=== PATIENT | female | born 1945 | race Caucasian/White ===

== ENCOUNTER 2019-11-05 08:00 | Outpatient (RCR) | payer MEDICARE, OTHER, SELFPAY | END 2019-11-10 10:44 | disposition home or self-care (01) | LOC: PT.CARL 08:00 | PROVIDERS: Visit Provider Orthopaedic Surgery Adult Reconstructive Orthopaedic Surgery | DX: M25.571 Pain in right ankle and joints of right foot (principal) | CPT/HCPCS: 97010; 97110; 97112; 97116; 97140; 97163 ==

== ENCOUNTER 2020-11-01 09:22 | Emergency (ER) | payer MEDICARE, OTHER, SELFPAY ==
[2020-11-01 09:24] VITALS: BP 174/104; PULSE 86; RESP 18; TEMP 36.8; O2SAT 99; BMI 28.3
--- NOTE | 2020-11-01 09:44 | XR_ITS ---
PROCEDURE: XR HIP LT 2-3V W/PELVIS CLINICAL INDICATION: pain injury COMPARISON: No exams were available for comparison FINDINGS: No fracture or dislocation. No lytic or blastic change. 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 IMPRESSION: No acute findings. Dictated by: Brett Zambrano MD 11/01/2020 10:31 Brett Zambrano MD in [place] 11/01/2020 10:31
--- NOTE | 2020-11-01 09:44 | CT_ITS ---
PROCEDURE: CT LUMBAR SPINE WO CON CLINICAL HISTORY: pain with radiculopathy COMPARISON: No exams were available for comparison TECHNIQUE: Axial images obtained with sagittal and coronal reformats. All CT scans at the facility use one or more dose reduction, viz: automated exposure control, ma/kV adjustment per patient size (including targeted exams where dose is matched to indication, i.e. head), or iterative reconstruction technique. FINDINGS: There is diffuse osteopenia and a mild lumbar scoliosis convex left. No acute fracture or dislocation. Degenerative changes are present in the SI joints. There is colonic diverticulosis but no evidence of diverticulitis. T11-T12: Degenerative disc disease. Mild facet hypertrophic change. T12-L1: Degenerative disc disease with bulging disc and facet hypertrophic change. Vacuum disc and endplate sclerosis noted. L1-L2: Degenerative disc disease with mild concentric bulging disc L2-L3: Degenerative disc disease with mild concentric bulging disc L3-L4: 6 mm anterolisthesis of L3 with degenerative disc disease bulging disc and facet and ligamentum hypertrophic change with canal stenosis, bilateral lateral recess narrowing, and bilateral foraminal narrowing. Lateral recess and foraminal narrowing is greater on the right secondary to facet and ligamentum hypertrophy. L4-5: Degenerative disc disease with bulging disc with bilateral lateral recess and foraminal narrowing. L5-S1: Degenerative disc disease with bulging disc with left-sided foraminal narrowing. IMPRESSION: Multilevel lower thoracic and lumbar spondylosis with degenerative disc disease, bulging discs, facet ligamentum hypertrophy with lateral recess and foraminal narrowing and canal stenosis. Please see above for detailed description at each level. No acute fracture Dictated by: Brett Zambrano MD 11/01/2020 10:38 Brett Zambrano MD in [facility] 11/01/2020 10:38
[2020-11-01 09:45] VITALS: BP 164/92; PULSE 84; O2SAT 98
--- NOTE | 2020-11-01 09:46 | HMH.EDBACK ---
ED Disposition Clinical Impression: Lumbar radiculopathy Disposition: Home, Self-Care Condition on Discharge: Good Instructions: DI for Low Back Pain Prescriptions: Hydrocod/Acet 5/325 mg [[place] 5/325mg tablet] 1 tab PO Q4HP PRN 1 Days #12 tab PRN Reason: Moderate To Severe Pain Transmission Status: Received by [facility] methocarbamoL [Methocarbamol] 1,500 mg PO Q8H PRN #30 tab PRN Reason: Muscle Pain Transmission Status: Received by [facility] Referrals: Cornelius Orta [Primary Care Provider] - - Critical Care Critical Care Time: No Attestation: On 11/01/20, the high probability of a clinically significant, sudden or life threatening deterioration of the following system(s) required my full and direct attention, intervention and personal management. The time I documented below is in addition to time spent performing reported procedures but includes the following listed in this critical care notation. Medical Decision Making - Medical Records Medical records reviewed: Yes: I reviewed the patient's medical records. - Edgar Inquiry Pt receiving controlled substance: Yes Edgar was queried for this patient: Yes Risks and benefits of using a controlled substance: were discussed with pt by me Vital Signs: 11/01/20 09:24 11/01/20 09:45 11/01/20 11:18 Temperature 98.2 F 98.3 F Temperature Source Oral Oral Pulse Rate 84 98 H Pulse Rate [Left] 86 Respiratory Rate 18 18 Blood Pressure 164/92 H 179/100 H Blood Pressure [Right Arm] 174/104 H Blood Pressure Mean [Right Arm] 127 Blood Pressure Source Automatic Cuff Blood Pressure Source [Right Arm] Automatic Cuff Blood Pressure Position Sitting Blood Pressure Position [Right Arm] Sitting 02 Sat by Pulse Oximetry 99 98 Oxygen Delivery Method Room Air Room Air - Lab Data Lab Results 11/01/20 10:50: Urine Color Yellow, Urine Appearance Clear, Urine pH 7.0, Ur Specific [place] 1.015, Urine Protein Negative, Urine Glucose (UA) Negative, Urine Ketones Negative, Urine Blood Negative, Urine Nitrate Negative, Urine Bilirubin Negative, Urine Urobilinogen 0.2, Ur Leukocyte Esterase 1+ A, Urine WBC 3-5, Ur Squamous Epith Cells 5-10, Urine Bacteria 1+ Orders (Tests/Meds): ED MEDICATIONS Discontinued Medications Generic Name Dose Route Start Last Admin Trade Name Freq PRN Reason Stop Dose Admin Hydrocodone Bitart/Acetaminophen 1 tab 11/01/20 09:44 11/01/20 09:52 Hydrocodone/Apap 5/325 Mg Tablet PO 11/01/20 09:45 1 tab ONCE ONE Administration Dexamethasone 10 mg 11/01/20 09:44 11/01/20 09:51 Dexamethasone 4mg Tablet PO 11/01/20 09:45 10 mg ONCE ONE Administration Methocarbamol 1,000 mg 11/01/20 09:45 11/01/20 09:53 Methocarbamol 500mg Tablet PO 12/01/20 09:44 1,000 mg BID ASHISH Administration ORDERS Category Date Time Status Urine Culture Stat Micro 11/01/20 10:50 Received Medical Decision Narrative: Physical exam consistent with left-sided radicular pain secondary to low back strain. Given age and difficulty ambulating secondary to pain will obtain a CT and the an x-ray of the hip to evaluate for compression fracture versus hip fracture. Will treat patient symptoms. xr negative for hip fx. ct with multilevel degen changes. pt reports improved pain on reassessment, able to ambulate. will dc with f/u with PT and pcp for spine sx referall and give rx for pain meds. no s/s of cauda equina. return indications reviewed. Back Pain HPI - General Chief Complaint: Back Pain/Injury Stated Complaint: weakness, pain in lt leg Time Seen by Provider: 11/01/20 09:45 Mode of Arrival: Wheelchair Limitations: Physical Limitations Description of Symptoms (Recalled from ER Triage Doc. by RN): patient bent down to pick pulling machine tender a 15 pound bag sunday morning and experienced extreme back pain when standing back up. patient states that it wraps around left lower back and radiates down left leg.
--- NOTE | 2020-11-01 10:04 | PC.NURSE ---
patient to CT/Xray
[2020-11-01 10:57] LABS: Microscopic, Urine URINE MICROSCOPIC (MICROSCOPIC)
--- NOTE | 2020-11-01 11:02 | PC.NURSE ---
Dr noland to return call
--- NOTE | 2020-11-01 11:04 | PC.NURSE ---
Dr Cassidy returned call.
[2020-11-01 11:18] VITALS: BP 179/100; PULSE 98; RESP 18; TEMP 36.8; O2SAT 99
[2020-11-01 11:33] LABS: Appearance,Urine CLEAR (Clear); Bilirubin,Urine Negative (Negative); Blood, Urine Negative (Negative); Color,Urine YELLOW (Yellow); Glucose,Urine (UA) Negative (Negative); Ketones,Urine Negative (Negative); Leukocyte Esterase,Urine 1+ (Negative); Nitrate,Urine Negative (Negative); Protein,Urine Negative (Negative); Specific Gravity, Urine 1.015 (1.005-1.030); Urobilinogen,Urine 0.2 EU/dl (0.2)
[2020-11-01 12:15] LABS: Bacteria,Urine 1+ /lpf
== END 2020-11-01 11:19 | disposition home or self-care (01) ==
PROVIDERS: Emergency Provider Emergency Medicine; PCP Family Medicine
DX: M54.16 Radiculopathy, lumbar region (principal); X50.0XXA Overexertion from strenuous movement or load, initial encounter; Y92.019 Unspecified place in single-family (private) house as the place of occurrence of the external cause; M54.9 Dorsalgia, unspecified
CPT/HCPCS: 72131; 73502; 81001; 87086; 99281; 99282

== ENCOUNTER 2020-12-01 13:00 | Outpatient (RCR) | payer MEDICARE, OTHER, SELFPAY | END 2020-12-27 11:28 | disposition home or self-care (01) | LOC: PT.CARL 13:00 | PROVIDERS: PCP Family Medicine; Visit Provider Family Medicine | DX: M54.42 Lumbago with sciatica, left side (principal); M51.36 Other intervertebral disc degeneration, lumbar region | CPT/HCPCS: 97010; 97012; 97014; 97110; 97140; 97163; G0283 ==

== ENCOUNTER 2022-05-28 01:23 | Emergency (ER) | payer MEDICARE, OTHER, SELFPAY ==
[2022-05-28 01:25] VITALS: BP 162/95; PULSE 105; RESP 17; TEMP 36.6; O2SAT 96; BMI 34.2
--- NOTE | 2022-05-28 01:33 | CT_ITS ---
PROCEDURE INFORMATION: Exam: CT Head Without Contrast Exam date and time: 05/28/2022 1:41 AM Age: 76 years old Clinical indication: Stroke-like symptoms; Altered mental status/memory loss; Additional info: Head injury TECHNIQUE: Imaging protocol: Computed tomography of the head without contrast. Radiation optimization: All CT scans at this facility use at least one of these dose optimization techniques: automated exposure control; mA and/or kV adjustment per patient size (includes targeted exams where dose is matched to clinical indication); or iterative reconstruction. Other protocol: This patient has received 2 known CTs and 0 known cardiac nuclear medicine studies in the 12 months prior to the current study. Other technique: STROKE PROTOCOL was implemented. COMPARISON: No relevant prior studies available. FINDINGS: Brain: There is mild enlargement of the cortical sulci compatible with compatible with involutional changes . No evidence of mass effect or midline shift. Confluent hypodensity without mass-effect are noted in the periventricular white matter compatible with chronic microvascular ischemic disease. The sherman/white matter interfaces are preserved. There are no extra-axial fluid collections.The basal cisterns are patent. Cerebral ventricles: No hydrocephalus. Paranasal sinuses: Well aerated. No fluid levels. Mastoid air cells: Visualized mastoid air cells are well aerated. Bones/joints: Unremarkable. No acute fracture. Soft tissues: Unremarkable. IMPRESSION: 1. No evidence of intracranial hemorrhage, mass effect, midline shift or hydrocephalus. 2. Findings compatible with chronic microvascular ischemic disease. 3. No acute discernible infarction. ASSESSMENT: ASPECTS ([place] Stroke Program Early CT Score) is 10.
--- NOTE | 2022-05-28 01:33 | CT_ITS ---
PROCEDURE INFORMATION: Exam: CT Maxillofacial Without Contrast Exam date and time: 05/28/2022 1:46 AM Age: 76 years old Clinical indication: Injury or trauma; Fall; Laceration; Lip/oral cavity; Lower; Not specified; Additional info: Facial trauma TECHNIQUE: Imaging protocol: Computed tomography of the face without contrast. Radiation optimization: All CT scans at this facility use at least one of these dose optimization techniques: automated exposure control; mA and/or kV adjustment per patient size (includes targeted exams where dose is matched to clinical indication); or iterative reconstruction. Other protocol: This patient has received 2 known CTs and 0 known cardiac nuclear medicine studies in the 12 months prior to the current study. COMPARISON: CT HEAD/BRAIN WO CON 05/28/2022 1:41 AM FINDINGS: Orbital cavities: Orbits are normal. Orbital contents are unremarkable. Bones/joints: Acute nondisplaced fracture lines extending the left anterior aspect of maximal to the left mandibular angle. Acute avulsion fractures of the mandibular condyles bilaterally with medial displacement and angulation of the condyles bilaterally. Paranasal sinuses: Normal. No air-fluid levels. Soft tissues: Facial soft tissue swelling worse on the left para mandibular subcutaneous emphysema. IMPRESSION: 1. Acute nondisplaced fracture lines extending the left anterior aspect of maximal to the left mandibular angle. 2. Acute avulsion fractures of the mandibular condyles bilaterally with medial displacement and angulation of the condyles bilaterally. 3. Facial soft tissue swelling worse on the left para mandibular subcutaneous emphysema.
--- NOTE | 2022-05-28 01:33 | CT_ITS ---
PROCEDURE INFORMATION: Exam: CT Cervical Spine Without Contrast Exam date and time: 05/28/2022 1:43 AM Age: 76 years old Clinical indication: Injury or trauma; Fall TECHNIQUE: Imaging protocol: Computed tomography of the cervical spine without contrast. Radiation optimization: All CT scans at this facility use at least one of these dose optimization techniques: automated exposure control; mA and/or kV adjustment per patient size (includes targeted exams where dose is matched to clinical indication); or iterative reconstruction. Other protocol: This patient has received 2 known CTs and 0 known cardiac nuclear medicine studies in the 12 months prior to the current study. COMPARISON: CT HEAD/BRAIN WO CON 05/28/2022 1:41 AM FINDINGS: Bones/joints: No acute fractures of the cervical spine. Normal alignment. No significant disc protrusion. No severe spinal canal stenosis. Acute nondisplaced fracture lines extending the left anterior aspect of maximal to the left mandibular angle. Acute avulsion fractures of the mandibular condyles bilaterally with medial displacement and angulation of the condyles bilaterally. Lungs: Lung apices are normal. Soft tissues: Facial soft tissue swelling worse on the left para mandibular subcutaneous emphysema. IMPRESSION: 1. No acute fractures or listhesis the. 2. Acute nondisplaced fracture lines extending from the left anterior aspect of the mandible to the left mandibular angle. 3. Acute avulsion fractures of the mandibular condyles bilaterally with medial displacement and angulation of the fractured condyles bilaterally. 4. Facial soft tissue swelling worse on the left. Para mandibular subcutaneous emphysema.
--- NOTE | 2022-05-28 01:34 | XR_ITS ---
PROCEDURE INFORMATION: Exam: XR Chest Exam date and time: 05/28/2022 2:00 AM Age: 76 years old Clinical indication: Shortness of breath; Additional info: Sob/cp TECHNIQUE: Imaging protocol: Radiologic exam of the chest. Views: 1 view. COMPARISON: CT CERVICAL SPINE WO CON 05/28/2022 1:43 AM FINDINGS: Limitations: Evaluation limited by patient body habitus. Lungs: Lungs appear grossly clear, with no obvious consolidation or pulmonary edema. Pleural spaces: Unremarkable. No pleural effusion. No pneumothorax. Heart/Mediastinum: Heart is borderline enlarged. Bones/joints: No acute osseous abnormality identified. IMPRESSION: No acute findings.
--- NOTE | 2022-05-28 01:35 | HMH.EDGENADL ---
Discharge Plan Disposition Patient Disposition: Home, Self-Care Condition: Good Prescriptions Prescriptions: No Action gabapentin 600 mg tablet 600 mg PO TID Label Comments: TAKE 1 TABLET 3 TIMES EACH DAY atorvastatin 10 mg tablet 10 mg PO DAILY Label Comments: TAKE 1 TABLET 1 TIME EACH DAY AT BEDTIME sertraline 100 mg tablet 100 mg PO DAILY Label Comments: TAKE 1 TABLET 1 TIME EACH DAY levothyroxine 50 mcg tablet 50 mcg PO DAILY Label Comments: TAKE 1 TABLET 1 TIME EACH DAY IN THE MORNING montelukast 10 mg tablet 10 mg PO DAILY fluticasone propionate 50 mcg/actuation spray,suspension 50 mcg INTRANASAL DAILY calcium carbonate [Caltrate 600] 600 mg calcium (1,500 mg) Tablet 600 mg PO DAILY aspirin [Baby Aspirin] 81 mg Tablet,Chewable 81 mg PO DAILY Zyrtec 10 mg Capsule 10 mg PO DAILY Referrals Follow up/Referrals: Brionna Dhillon [Primary Care Provider] - See instructions Activity Restrictions/Add. Instructions Additional Instructions/Restrictions: ORAL & MAXILLOFACIAL SURGERY Address [address] [place] [address] Fifth Floor, [address] [place] [address] [facility]:?[phone] Clinical Impressions Clinical Impression: Fall, Maxillary fracture, Bilateral fracture of condylar head and midline fracture of mandible, Laceration of lip Instructions Patient Instructions: How to Prevent Falls, DI for Laceration Repair, Closed Head Injury, Concussion, DI for Concussion, DI for Closed Head Injury, Skull and Facial Fracture, DI for Hypokalemia Discharge ED Provider: Speedy Colindres Adult HPI General Chief complaint: Fall Stated complaint: AO 05/27/22 Injury to lower lip,V/D Time Seen by Provider: 05/28/22 01:29 Mode of Arrival: Wheelchair Source of Information: Spouse History of Present Illness HPI narrative: 76-year-old female not on anticoagulants presents via private vehicle accompanied by after fall approximately 1 hour ago. She fell forward, sustained through and through laceration of the lower lip, since that time has become somewhat somnolent. She is also reporting nausea without vomiting. Denies any neck pain, numbness or tingling. History is somewhat limited from the patient and partially obtained from the due to change in mental status. He does states she is normally alert and oriented active and ambulatory without difficulty. She denies any preceding symptoms that caused her to fall but is somewhat amnestic to the event. Uncertain Tdap status updated here. In addition to the laceration they report bleeding out of the left ear. Related Data Home Medications Medication Instructions Recorded Confirmed aspirin 81 mg chewable tablet 81 mg PO DAILY HEART HEALTH 05/28/22 05/28/22 atorvastatin 10 mg tablet 10 mg PO DAILY HLD 05/28/22 05/28/22 calcium carbonate 600 mg calcium 600 mg PO DAILY Supplement 05/28/22 05/28/22 (1,500 mg) tablet cetirizine 10 mg capsule (Zyrtec) 10 mg PO DAILY ALLERGIES 05/28/22 05/28/22 fluticasone propionate 50 50 mcg intranasal DAILY ALLERGIES 05/28/22 05/28/22 mcg/actuation nasal spray,suspension gabapentin 600 mg tablet 600 mg PO TID NEUROPATHY 05/28/22 05/28/22 levothyroxine 50 mcg tablet 50 mcg PO DAILY HYPOTHYROIDISM 05/28/22 05/28/22 montelukast 10 mg tablet 10 mg PO DAILY ALLERGIES 05/28/22 05/28/22 sertraline 100 mg tablet 100 mg PO DAILY Depression 05/28/22 05/28/22 Allergies Allergy/AdvReac Type Severity Reaction Status Date / Time ampicillin Allergy Verified 11/01/20 09:48 Tetracyclines Allergy Verified 11/01/20 09:48 [facility] Disclaimer: The information contained in this section may have been updated after the patient was seen, as this information can be updated by other users. Social History Smoking Status: Never smoker alcohol intake: never current occupational
[2022-05-28 01:48] LABS: POC Glucose,Bedside 115 (70-110)
[2022-05-28 01:53] VITALS: PULSE 107; O2SAT 90
--- NOTE | 2022-05-28 02:00 | ECG_ITS ---
APPROVED REPORT Exam: Resting ECG HR:104 bpm ECG Measurements Heart Rate 104 AXES DC 150 P 54 QRSd 82 QRS 49 QT 322 T 48 QTc 382 Conclusion SINUS TACHYCARDIA NONSPECIFIC ST & T-WAVE ABNORMALITY ABNORMAL RHYTHM ECG UNCONFIRMED REPORT Electronically signed by : Steven Palomo MD 05/28/2022 15:13:33
--- NOTE | 2022-05-28 02:45 | PC.NURSE ---
phone call to transfer center
--- NOTE | 2022-05-28 02:57 | PC.NURSE ---
Pt has been a difficulty stick to obtain labs and IV placement. Was able to successfully placed 20g PIV to LAC with 4 attempts. Called lab to collect blood-work. aware of difficulty.
[2022-05-28 03:35] LABS: VBG Base Excess 1.4 mmol/L (-2.4-2.3); VBG HCO3 24.9 mmol/L (23-30); VBG Oxygen Saturation 95.7 % (50-70); VBG PCO2 34.3 mmol/L (35-51); VBG PH 7.48 mmol/L (7.31-7.41); VBG PO2 73.6 mmol/L (28-40)
[2022-05-28 03:44] LABS: Basophils % 0.2 % (0.1-2.0); Eosinophils # 0.1 K/mm3 (0.0-0.4); Eosinophils % 0.6 % (0.1-12.0); Hematocrit 38.4 % (37.0-47.0); Hemoglobin 13.1 g/dL (12.2-16.2); Lymphocytes # 0.5 K/mm3 (0.7-4.5); Lymphocytes % 4.3 % (10-50); Mean Corpuscular HGB Conc 34.1 g/dL (31.8-35.4); Mean Corpuscular Hemoglobin 27.9 pg (27.0-31.2); Mean Corpuscular Volume 81.8 fl (81-99); Mean Platelet Volume 8.8 fl (7.4-10.4); Neutrophils # 10.8 K/mm3 (1.8-7.8); Neutrophils % 86.9 % (37.0-80.0); Platelet Count 182 K/mm3 (142-424); Red Blood Count 4.69 M/mm3 (4.20-5.40); Red Cell Distribution Width 13.8 % (11.5-17.5); White Blood Count 12.4 K/mm3 (4.8-10.8)
[2022-05-28 03:46] VITALS: BP 135/66; PULSE 95; O2SAT 91
[2022-05-28 03:46] LABS: INR 1.11 (0.9-1.1); Prothrombin Time 11.9 seconds (10.1-12.5)
[2022-05-28 03:50] LABS: MANUAL DIFFERENTIAL MANUAL DIFFERENTIAL (MANUAL DIFF)
--- NOTE | 2022-05-28 03:59 | PC.NURSE ---
vitals not taken while ED staff and lab staff in room attempting IV and blood draws
[2022-05-28 04:04] LABS: Eosinophils % 2 % (0-3); Lymphocytes % 10 % (10-50); Monocytes % 1 % (2-9); Neutrophils % 87 % (42-76); Total Cells Counted 100
[2022-05-28 04:05] LABS: Platelet Estimate Normal; RBC Morphology Normal
[2022-05-28 04:06] LABS: Ethyl Alcohol < 10 mg/dl (0-10)
[2022-05-28 04:07] LABS: Alanine Aminotransferase 19 U/L (12-78); Albumin Level 3.9 g/dl (3.5-5.0); Albumin/Globulin Ratio 1.1 (1.1-1.8); Alkaline Phosphatase 123 U/L (38-126); Aspartate Amino Transferase 37 U/L (14-36); Bilirubin,Total 0.9 mg/dl (0.2-1.3); Blood Urea Nitrogen 11 mg/dl (7-17); Calcium 8.7 mg/dl (8.4-10.2); Carbon Dioxide 25 mmol/L (22.0-30.0); Chloride 95 mmol/L (98-107); Creatinine Clearance Estimated 61 mL/min (50-200); Estimated Glomerular Filt Rate 82 ml/min (>60); GFR (African American) 99 ML/MIN (>60); Globulin 3.5 g/dL (1.3-3.2); Glucose 140 mg/dl (74-100); Sodium 132 mmol/L (136-145); Total Protein,Serum 7.4 g/dl (6.3-8.2)
--- NOTE | 2022-05-28 04:08 | PC.NURSE ---
notified of critical potassium
[2022-05-28 04:11] LABS: Troponin I 0.01 ng/ml (0.00-0.034)
[2022-05-28 05:24] LABS: Microscopic, Urine URINE MICROSCOPIC (MICROSCOPIC)
[2022-05-28 05:26] LABS: Appearance,Urine CLEAR (Clear); Blood, Urine 2+ (Negative); Color,Urine AMBER (Yellow); Glucose,Urine (UA) Negative (Negative); Ketones,Urine TRACE (Negative); Leukocyte Esterase,Urine Negative (Negative); Nitrate,Urine Negative (Negative); Protein,Urine 3+ (Negative); Specific Gravity, Urine >= 1.030 (1.005-1.030)
[2022-05-28 05:33] LABS: Bilirubin,Urine 2+ (Negative)
[2022-05-28 05:41] LABS: Bacteria,Urine 1+ /lpf; Fine Granular Casts,Urine Occasional #/lpf (0); Mucus,Urine 2+ /lpf; RBC,Urine Occasional #/hpf (0-3); Squamous Epithelial Cell,Urine Occasional #/hpf (0-5)
[2022-05-28 05:46] VITALS: BP 132/78; PULSE 88; RESP 17; TEMP 36.6; O2SAT 96
== END 2022-05-28 06:35 | disposition home or self-care (01) ==
PROVIDERS: Emergency Provider Emergency Medicine; PCP Nurse Practitioner Family
DX: S02.401A Maxillary fracture, unspecified side, initial encounter for closed fracture; S02.611A Fracture of condylar process of right mandible, initial encounter for closed fracture; S02.612A Fracture of condylar process of left mandible, initial encounter for closed fracture; S01.511A Laceration without foreign body of lip, initial encounter; W19.XXXA Unspecified fall, initial encounter
CPT/HCPCS: 12011; 71045; 80053; 81001; 82803; 82962; 84484; 85007; 85025; 85610; 90471; 90715; 93005; 96361; 96365; 99285

== ENCOUNTER 2023-08-17 21:28 | Emergency (ER) | payer MEDICARE, OTHER, SELFPAY ==
[2023-08-17 21:29] VITALS: BP 159/85; PULSE 80; RESP 16; TEMP 36.7; O2SAT 98; BMI 28.1
--- NOTE | 2023-08-17 21:52 | XR_ITS ---
PROCEDURE INFORMATION: Exam: XR Right Elbow Exam date and time: 08/17/2023 10:06 PM Age: 77 years old Clinical indication: Injury or trauma; Fall; Sprain or strain; Elbow; Right; Additional info: Fall, R elbow pain laterally at epiconsyle TECHNIQUE: Imaging protocol: Radiologic exam of the right elbow. Views: 3 or more views. COMPARISON: CR XR FOREARM RT 2V 08/17/2023 10:06 PM FINDINGS: Bones/joints: Normal. Soft tissues: Normal. IMPRESSION: No acute findings.
--- NOTE | 2023-08-17 21:52 | XR_ITS ---
PROCEDURE INFORMATION: Exam: XR Right Forearm Exam date and time: 08/17/2023 10:06 PM Age: 77 years old Clinical indication: Injury or trauma; Fall; Sprain or strain; Wrist; Right; Additional info: Fall, distal ulnar pain, can't supinate TECHNIQUE: Imaging protocol: Radiologic exam of the right forearm. Views: 2 views. COMPARISON: CR XR HAND RT MIN 3V 08/17/2023 10:06 PM FINDINGS: Bones/joints: Slightly impacted distal radius fracture. Soft tissues: Normal. IMPRESSION: Slightly impacted distal radius fracture.
--- NOTE | 2023-08-17 21:52 | XR_ITS ---
PROCEDURE INFORMATION: Exam: XR Right Wrist Exam date and time: 08/17/2023 10:06 PM Age: 77 years old Clinical indication: Injury or trauma; Fall; Sprain or strain; Wrist; Right; Additional info: Fall, distal ulnar pain, can't supinate TECHNIQUE: Imaging protocol: Radiologic exam of the right wrist. Views: 3 or more views. COMPARISON: CR XR FOREARM RT 2V 08/17/2023 10:06 PM FINDINGS: Bones/joints: No fracture or bone destruction. Extensive triscaphe osteoarthritis. Soft tissues: Normal. IMPRESSION: 1. No fracture or bone destruction. 2. Extensive triscaphe osteoarthritis.
--- NOTE | 2023-08-17 21:52 | XR_ITS ---
PROCEDURE INFORMATION: Exam: XR Right Hand Exam date and time: 08/17/2023 10:06 PM Age: 77 years old Clinical indication: Injury or trauma; Fall; Sprain or strain; Wrist; Right; Additional info: Fall, distal ulnar pain, can't supinate TECHNIQUE: Imaging protocol: Radiologic exam of the right hand. Views: 3 or more views. COMPARISON: CR XR FOREARM RT 2V 08/17/2023 10:06 PM FINDINGS: Bones/joints: Horizontal lucency in the distal radius consistent with a distal radius fracture. Carpal bones intact. Moderate triscaphe osteoarthritis. Multifocal osteoarthritis of the PIP and DIP joints. Soft tissues: Normal. IMPRESSION: 1. Horizontal lucency in the distal radius consistent with a distal radius fracture. 2. Carpal bones intact. 3. Moderate triscaphe osteoarthritis. 4. Multifocal osteoarthritis of the PIP and DIP joints.
--- NOTE | 2023-08-17 21:53 | CT_ITS ---
PROCEDURE INFORMATION: Exam: CT Cervical Spine Without Contrast Exam date and time: 08/17/2023 10:07 PM Age: 77 years old Clinical indication: Injury or trauma; Fall; Blunt trauma; Additional info: Fall, struck back of head TECHNIQUE: Imaging protocol: Computed tomography of the cervical spine without contrast. Radiation optimization: All CT scans at this facility use at least one of these dose optimization techniques: automated exposure control; mA and/or kV adjustment per patient size (includes targeted exams where dose is matched to clinical indication); or iterative reconstruction. COMPARISON: CT CERVICAL SPINE WO CON 05/28/2022 1:43 AM FINDINGS: Bones/joints: Spinal alignment is normal. No fracture or bone destruction. Predental space narrowing and proliferative change from dense consistent with arthritis. Old bilateral mandibular condyle fractures similar to 05/28/2022. Lungs: Lung apices are normal. Soft tissues: Unremarkable. IMPRESSION: 1. Spinal alignment is normal. 2. No fracture or bone destruction. 3. Predental space narrowing and proliferative change from dense consistent with arthritis. 4. Old bilateral mandibular condyle fractures similar to 05/28/2022.
--- NOTE | 2023-08-17 21:53 | CT_ITS ---
PROCEDURE INFORMATION: Exam: CT Head Without Contrast Exam date and time: 08/17/2023 9:59 PM Age: 77 years old Clinical indication: Injury or trauma; Fall; Blunt trauma (contusions or hematomas); Additional info: Fall, struck back of head TECHNIQUE: Imaging protocol: Computed tomography of the head without contrast. Radiation optimization: All CT scans at this facility use at least one of these dose optimization techniques: automated exposure control; mA and/or kV adjustment per patient size (includes targeted exams where dose is matched to clinical indication); or iterative reconstruction. COMPARISON: CT HEAD/BRAIN WO CON 05/28/2022 1:41 AM FINDINGS: Brain: No evidence for intracranial hemorrhage, mass lesions or acute stroke. Intracranial vascular calcifications. Mild small vessel ischemic change in the periventricular white matter. Cerebral ventricles: No ventriculomegaly. Pituitary gland and sella: Negative Paranasal sinuses: Visualized sinuses are unremarkable. No fluid levels. Mastoid air cells: Visualized mastoid air cells are well aerated. Orbital cavities: Bilateral cataract extractions Parotid and submandibular glands: Negative Bones/joints: Unremarkable. No acute fracture. Soft tissues: Unremarkable. Vasculature: Negative. Other findings: Mild generalized atrophy. IMPRESSION: 1. No evidence for intracranial hemorrhage, mass lesions or acute stroke. 2. Intracranial vascular calcifications. 3. Mild generalized atrophy. 4. Mild small vessel ischemic change in the periventricular white matter.
--- NOTE | 2023-08-17 22:17 | [facility].EDGENADL ---
Discharge Plan Disposition Patient Disposition: Home, Self-Care Chief Complaint: Extremity Injury, Upper Prescriptions Prescriptions: No Action gabapentin 600 mg tablet 600 mg PO TID Patient Comments: TAKE 1 TABLET 3 TIMES EACH DAY atorvastatin 10 mg tablet 10 mg PO DAILY Patient Comments: TAKE 1 TABLET 1 TIME EACH DAY AT BEDTIME sertraline 100 mg tablet 100 mg PO DAILY Patient Comments: TAKE 1 TABLET 1 TIME EACH DAY levothyroxine 50 mcg tablet 50 mcg PO DAILY Patient Comments: TAKE 1 TABLET 1 TIME EACH DAY IN THE MORNING montelukast 10 mg tablet 10 mg PO DAILY fluticasone propionate 50 mcg/actuation spray,suspension 50 mcg INTRANASAL DAILY calcium carbonate [Caltrate 600] 600 mg calcium (1,500 mg) Tablet 600 mg PO DAILY aspirin [Baby Aspirin] 81 mg Tablet,Chewable 81 mg PO DAILY Zyrtec 10 mg Capsule 10 mg PO DAILY Referrals Follow up/Referrals: Brionna Dhillon [Primary Care Provider] - See instructions Darren Orozco DO [Staff Physician] - See instructions Activity Restrictions/Add. Instructions Additional Instructions/Restrictions: Follow-up with Dr. Orozco for further operative management. Take Tylenol 1000 mg every 6 hours (4 times daily) and ibuprofen 400 mg every 6 hours (4 times daily) as needed with food and water to prevent GI upset and kidney damage. Clinical Impressions Clinical Impression: Closed fracture of right forearm Discharge ED Provider: Meliton Hawthorne General Adult HPI General Chief complaint: Extremity Injury, Upper Stated complaint: AO04/19 RT arm inj Time Seen by Provider: 08/17/23 21:35 Mode of Arrival: Ambulatory Source of Information: Patient Limitations: No Limitations Description of Symptoms (Recalled from ER Triage Doc. by RN): Pt presents with right elbow, forearm, and wrist pain after a fall d/t losing her balance. Deformity present in lower wrist area, ice pack applied. History of Present Illness HPI narrative: 77-year-old female no relevant medical history presenting with right upper extremity pain. Patient states that she was walking in her bedroom when she turned quickly, lost her balance, fell backward, struck her head on the floor, no loss of consciousness. She also struck her right upper extremity on the gun safe, unsure of how she hit it, but is having significant pain in the ulnar aspect of her distal wrist. Unable to supinate wrist secondary to pain. Has not taken anything for pain, has ice pack on and on my evaluation. Please note that above description of symptoms, in this electronic medical record under categorization of recalled from ER triage doctor by RN are reflective of an initial nursing assessment, however, is not reflective of my full history and physical exam that was personally taken and clarified. Consequentially, this preceding description of symptoms, which may include the patient's categorized chief complaint in the EMR, do not reflect my personal clinical impression, and the ultimate description of history of present illness and patient stated complaints should be deferred to this section of the note. Unless stated otherwise or congruent with this section of the note, additional signs, symptoms, or incongruence should be interpreted as inaccurate with my clinical impression. Related Data Home Medications Medication Instructions Recorded Confirmed aspirin 81 mg chewable tablet 81 mg PO DAILY HEART HEALTH 05/28/22 05/28/22 atorvastatin 10 mg tablet 10 mg PO DAILY HLD 05/28/22 05/28/22 calcium carbonate 600 mg PO DAILY Supplement 05/28/22 05/28/22 cetirizine 10 mg capsule (Zyrtec) 10 mg PO DAILY ALLERGIES 05/28/22 05/28/22 fluticasone propionate 50 50 mcg intranasal DAILY ALLERGIES 05/28/22 05/28/22 mcg/actuation nasal spray,suspension gabapentin 600 mg tablet 600 mg PO TID NEUROPATHY 05/28/22 05/28/22 levothyroxine 50 mcg tablet 50 mcg PO DAILY HYPOTHYROIDISM 05/28/22 05/28/22 montelukast 10 mg tablet 10 mg PO DAILY ALLERGIES 05/28/22 05/28/22 sertraline 100 mg tablet 100 mg PO DAILY Depression 05/28/22 05/28/22 Allergies Allergy/AdvReac Type Severity Reaction Status Date / Time ampicillin Allergy Verified 11/01/20 09:48 Tetracyclines Allergy Verified 11/01/20 09:48 [facility] Disclaimer: The information contained in this section may have been updated after the patient was seen, as this information can be updated by other users. Social History (Updated 05/28/22 @ 05:43 by Speedy Colindres MD) Smoking Status: Never smoker alcohol intake: never current occupational status: other Travel in the last 8 weeks: None ROS Obtained: Yes All systems reviewed & no additional complaints except as documented Physical Exam General General appearance: alert and in no apparent distress Head Head exam: atraumatic and normocephalic Eye Eye exam: Present normal appearance, PERRL and EOMI ENT ENT exam: Present mucous membranes moist Neck Neck exam: Present normal inspection, full ROM and trachea midline Respiratory Respiratory exam: Absent respiratory distress, wheezes, stridor, accessory muscle use or prolonged expiratory phase Cardiovascular Cardiovascular exam: Present normal rhythm Abdominal Exam Abdominal exam: Present soft; Absent distention, tenderness, guarding, rebound or rigidity Extremities Exam Extremities exam: Present other (Superficial skin tear lateral epicondyle. Pain distal radius and ulna neurovascularly intact with range of motion intact.); Absent edema Neurological Exam Neurological exam: Present alert, oriented X3, CN II-XII intact and normal gait; Absent motor sensory deficit Skin Skin exam: Present warm and dry; Absent diaphoresis or erythema Medical Decision Making Medical Records Medical records reviewed: Yes I reviewed the patient's medical records. Edgar Inquiry Pt receiving controlled substance: No Edgar was queried for this patient: No Vital Signs: 08/17/23 21:29 08/17/23 22:27 Temperature 98.1 F Temperature Source Oral Pulse Rate 74 Pulse Rate [Left] 80 Respiratory Rate 16 Blood Pressure 147/79 H Blood Pressure [Right Arm] 159/85 H Blood Pressure Mean [Right Arm] 109 Blood Pressure Source [Right Arm] Manual Cuff/ Doppler Blood Pressure Position [Right Arm] Sitting 02 Sat by Pulse Oximetry 98 98 Oxygen Delivery Method Room Air Orders (Tests/Meds): ED MEDICATIONS Discontinued Medications Generic Name Dose Route Start Last Admin Trade Name Freq PRN Reason Stop Dose Admin Acetaminophen 1,000 mg 08/17/23 22:22 08/17/23 22:43 Acetaminophen 500mg Tab PO 08/17/23 22:23 1,000 mg ONCE ONE Administration Ibuprofen 600 mg 08/17/23 22:22 08/17/23 22:43 Ibuprofen 600 Mg Tablet PO 08/17/23 22:23 600 mg ONCE ONE Administration Lidocaine HCl 20 ml 08/17/23 22:22 Lidocaine 1% 20ml Mdv SQ 08/17/23 22:23 ONCE ONE ORDERS Category Date Time Status CT cervical spine wo con Stat Cat Scan 08/17/23 21:[address] head/brain wo con Stat Cat Scan 08/17/23 21:53 Completed Elbow XR right minimum 3 views [XR elbow RT min 3V] Exams 08/17/23 21:52 Taken Stat Forearm XR right 2 views [XR forearm RT 2V] Stat Exams 08/17/23 21:52 Taken Hand XR right minimum 3 views [XR hand RT min 3V] Stat Exams 08/17/23 21:52 Taken Wrist XR right minimum 3 views [XR wrist RT min 3V] Exams 08/17/23 21:52 Taken Stat Medical Decision Narrative: 77-year-old female no relevant medical history presenting with right upper extremity pain. Patient states that she was walking in her bedroom when she turned quickly, lost her balance, fell backward, struck her head on the floor, no loss of consciousness. She also struck her right upper extremity on the gun safe, unsure of how she hit it, but is having significant pain in the ulnar aspect of her distal wrist. Unable to supinate wrist secondary to pain. Has not taken anything for pain, has ice pack on and on my evaluation. History obtained with patient and . On arrival, patient hemodynamically stable, well-appearing, appropriate. Neurovascularly intact. Right upper extremity has superficial skin tear over lateral epicondyle. She also has tenderness over distal radius and ulna on the right without obvious deformity. Pulses are intact distally. Neurovascular intact distally, range of motion of wrist in supination limited secondary to pain. Differential includes sprain, strain, dislocation, fracture, cervical spine injury, intracranial hemorrhage, among others. Patient given Tylenol Motrin. Independent rotation of CTs without intracranial hemorrhage or cervical spine injury. Right upper extremity films demonstrated both bone fracture right radius and ulna with nondisplaced and no angulation on independent interpretation. Patient was splinted in place with plaster. Because patient at baseline without signs or symptoms of clinical decompensation, deemed appropriate for discharge. Results were relayed to patient who voiced understanding and were agreeable to outpatient management and follow up. I discussed my clinical impression with patient and answered all questions. At this time, the evidence for any other entities in the differential is insufficient to warrant any further testing or ED observation. This was explained as well. Advisory was given that persistent or worsening symptoms require further evaluation. I confirmed the understanding of this discussion. Critical Care Critical Care Time Critical Care Time: No
--- NOTE | 2023-08-17 22:23 | PC.NURSE ---
patient back from radiology
[2023-08-17 22:27] VITALS: BP 147/79; PULSE 74; O2SAT 98
[2023-08-17] MEDS: IBUPROFEN 600 MG TABLET PO (22:43)
[2023-08-17] MEDS: ACETAMINOPHEN 500MG TAB 1000 MG PO (22:43)
[2023-08-17 23:25] VITALS: BP 151/74; PULSE 68; RESP 16; TEMP 36.5; O2SAT 98
== END 2023-08-17 23:26 | disposition home or self-care (01) ==
PROVIDERS: Emergency Provider Emergency Medicine; PCP Nurse Practitioner Family
DX: S52.501A Unspecified fracture of the lower end of right radius, initial encounter for closed fracture (principal); M25.531 Pain in right wrist; W18.30XA Fall on same level, unspecified, initial encounter
CPT/HCPCS: 70450; 72125; 73080; 73090; 73110; 73130; 99285

== ENCOUNTER 2023-11-22 07:00 | Outpatient (RCR) | payer MEDICARE, OTHER, SELFPAY | END 2023-12-04 08:23 | disposition home or self-care (01) | LOC: PT 07:00 | PROVIDERS: Visit Provider Orthopaedic Surgery | DX: M19.031 Primary osteoarthritis, right wrist (principal); M25.531 Pain in right wrist; S52.591A Other fractures of lower end of right radius, initial encounter for closed fracture | CPT/HCPCS: 97010; 97014; 97110; 97140; 97163; G0283 ==